=== PATIENT | male | born 1995 | race Caucasian/White ===

== ENCOUNTER 2024-06-13 14:29 | Outpatient (CLI) | payer BC, SELFPAY ==
--- NOTE | ~2024-06-13 | MR_ITS ---
EXAMINATION: MR knee RT wo con DATE: 06/13/2024 15:03 INDICATION: Medial right knee pain, injury of R knee TECHNIQUE: Magnetic resonance imaging (MRI) of the right knee was performed without intravenous contr ast. Sequences included axial PD-weighted FS FSE, coronal PD-weighted FSE and PD-weighted FS FSE, sag ittal PD-weighted FSE, and sagittal T2-weighted FS FSE. COMPARISON: None. FINDINGS: Medial compartment: Meniscus and cartilage intact. Cortical defect along the posterior most aspect of the medial tibial p lateau, with 2 mm depression. Lateral compartment: Small vertical meniscal tear in the medial aspect of the posterior horn. Cartilage thinning over the lateral aspect of the LFC. Vertical cartilaginous fissures over the tibial plateau, medially and post eriorly. 11 x 14 mm area of cortical depression posteriorly on the lateral tibial plateau, with 3 mm depression/cartilaginous step-off. Patellofemoral compartment: Focal high signal at the origin of the patellar tendon with patellar tendon thickening. Quadriceps te ndon intact. Retinacula intact. Full and partial-thickness cartilaginous defects over the lateral fac et. Ligaments and tendons: Complete ACL tear. Thickening of the MCL with high signal superficial and deep. Thickening and interm ediate signal in the origin of the lateral collateral ligament. The PCL is intact. Thickening and abn ormal signal at the insertion of the popliteus tendon. Fluid: Large joint effusion. Delarosa's cyst with layering debris likely representing hemorrhage. Osseous/other: Mild marrow edema posteriorly along the medial and lateral aspects of the tibial plateau. Minimal mar row edema in the lateral aspect of the LFC. IMPRESSION: Complete ACL tear. Partial tears of the MCL and LCL. Small vertically oriented tear of the posterior horn of lateral meniscus. 11 x 14 mm focal area of cortical depression with a cartilaginous step-off over the posterior most as pect of the lateral tibial plateau. Small 2 mm cortical depression over the posterior most aspect of the medial tibial plateau. Popliteus tendon strain. Large joint effusion and Delarosa's cyst, with layering hemorrhage. Partial patellar tendon tear at the origin. Chondromalacia patella. Reviewed, dictated and finalized at location K. IMPRESSION: Complete ACL tear. Partial tears of the MCL and LCL. Small vertically oriented tear of the posterior horn of lateral meniscus. 11 x 14 mm focal area of cortical depression with a cartilaginous step-off over the posterior most aspect of the lateral tibial plateau. Small 2 mm cortical d epression over the posterior most aspect of the medial tibial plateau. Popliteus tendon strain. Large joint effusion and Delarosa's cyst, with layering hemorrhage. Partial patellar tendon tear at the origin. Chondromalacia patella.
== END 2024-06-13 14:30 | disposition home or self-care (01) ==
DX: S83.511A Sprain of anterior cruciate ligament of right knee, initial encounter (principal); S83.411A Sprain of medial collateral ligament of right knee, initial encounter; S83.421A Sprain of lateral collateral ligament of right knee, initial encounter; S86.811A Strain of other muscle(s) and tendon(s) at lower leg level, right leg, initial encounter; S83.241A Other tear of medial meniscus, current injury, right knee, initial encounter; X58.XXXA Exposure to other specified factors, initial encounter; M71.21 Synovial cyst of popliteal space [Baker], right knee; S76.111A Strain of right quadriceps muscle, fascia and tendon, initial encounter; M22.41 Chondromalacia patellae, right knee
CPT/HCPCS: 73721